=== PATIENT | female | born 1960 | race Caucasian/White ===

== ENCOUNTER 2016-09-19 17:49 | Emergency (ER) | payer OTHER ==
[~2016-09-19] VITALS: Ht 162.6 cm; Wt 90.1 kg
[~2016-09-19 17:49] MED LIST: ADULT LOW DOSE81 M1 PO; ADVAIR HFA 230-28 GM IH; ALPRAZOLAM0.25 MG PO; AMARYL2 MG PO; ANTIVERT12.5 MG PO; ASPIR 8181 M1 PO; ASPIRIN E.C.81 M1 PO; ASPIRIN81 M1 PO; ASPIRIN81 M2 PO; AUGMENTIN875 MG PO; AURALGAN14.8 ML RIGHT EAR; Advair HFA 230/21 IH; Antivert PO; B COMPLEX VIT PO; B-12 DOTS500 MCG PO; B-12250 MCG PO; BACLOFEN10 MG PO; BENTYL20 MG PO; CELEBREX200 MG PO; CELEXA20 MG PO; CIPRO500 MG PO; CITALOPRAM HBR20 M1 PO; CITALOPRAM HBR20 MG PO; COZAAR50 MG; COZAAR50 MG PO; Celexa PO; DELTASONE2.5 MG PO; DIOVAN40 MG PO; DIOVAN80 MG PO; FLAGYL500 MG PO; FLEXERIL10 MG PO; FOLIC ACID0.4 MG PO; FOLIC ACID20 MG PO; FUROSEMIDE40 MG PO; GABAPENTIN300 MG PO; GABAPENTIN600 MG PO; IRON18 MG PO; ISOSORBIDE DINI30 MG PO; KADIAN PO; KEFLEX500 MG PO; LASIX20 MG PO; LEVOTHROID,S0.025 MG PO; LEVOTHROID25 MCG PO; LEVOTHYROXINE25 MCG PO; LIPITOR80 MG PO; LISINOPRIL20 MG PO; Levaquin PO; Levothroid,Synthroid PO; MECLIZINE HCL12.5 M1 PO; MECLIZINE HCL12.5 MG PO; METHOTREXATE2.5 MG PO; METOPROLOL SUCC50 MG PO; MILLIPRED5 MG PO; MORPHINE SULFA100 M2 PO; MORPHINE SULFAT15 M1 PO; MS CONTIN,ORAMO15 M1 PO; NEURONTIN600 MG PO; Neurontin PO; OMEPRAZOLE20 MG PO; OSTERA TABLET1 EACH PO; PANTOPRAZOLE SO40 MG PO; PERCOCET 10-321 EACH PO; PERCOCET 10/1 TABLET PO; PERCOCET 5/31 TABLET PO; PLAVIX75 MG PO; PREDNISONE2.5 M1 PO; PRILOSEC20 MG; PROAIR HFA8.5 GM IH; PROAIR RESPICL90 MCG IH; PROMETHAZINE HC25 M1 PO; PROTONIX40 MG PO; PROVENTIL,2.5 MG/0.5 IH; Proair HFA IH; RANITIDINE HCL150 M1 PO; RANITIDINE HCL150 MG PO; SINGULAIR10 MG PO; SYMBICORT60 INHALA1 IH; SYNTHROID25 MCG PO; Singulair PO; TOPROL XL200 MG PO; TOPROL XL50 MG PO; TRAZODONE HCL50 MG PO; VITAMIN D1000 INTUN PO; VITAMIN D1000 UNIT PO; Vitamin B-12 PO; XANAX0.5 MG PO; XANAX2 MG PO; Xanax PO; ZOFRAN4 MG PO
[2016-09-19 21:04] LABS: ADD MIUA? YES; BILIRUBIN SMALL; BLOOD NEGATIVE; COLOR YELLOW ((YELLOW)); GLUCOSE (STRIP) NEGATIVE; KETONES NEGATIVE; LEUKOCYTES SMALL; NITRITE NEGATIVE; PH, URINE 5.5 (5-8); PROTEIN (STRIP) TRACE; SPECIFIC GRAVITY 1.025 (1.000-1.030)
[2016-09-19 21:22] LABS: HEMATOCRIT 39.6 % (36.0-46.0); MCH 31.6 PG (29.0-34.0); MCHC 33.1 G/DL (30.0-36.0); MCV 95.4 FL (83-99); MEAN PLAT.VOLUME 9.7 uM^3 (9.5-12.4); PLATELET COUNT 353 K/uL (156-360); RBC DIS.WIDTH-CV 13.2 % (11.8-14.6); RBC DIS.WIDTH-SD 44.2 % (39-53); RED BLOOD COUNT 4.15 M/uL (3.80-5.20)
[2016-09-19 21:39] LABS: CHLORIDE 104 mEq/L (99-109); POTASSIUM 4.5 mEq/L (3.7-5.4); SODIUM 138 mEq/L (136-147)
[2016-09-19 21:41] LABS: BACTERIA 2+; CASTS NONE SEEN /LPF; CRYSTALS NONE SEEN; EPITHELIAL CELLS 1+; MUCUS 1+; RED BLOOD CELLS 0-5 /HPF (0-5); WHITE BLOOD CELLS 0-5 /HPF (0-5)
[2016-09-19 21:41] LABS: GLUCOSE 88 mg/dL (70-99)
[2016-09-19 21:42] LABS: ANION GAP 10 MEQ/L (2-14)
[2016-09-19 21:45] LABS: GFR ESTIMATE (CALCULATED) 54 mL/min/
[2016-09-19 21:46] LABS: UREA NITROGEN (BUN) 22 mg/dL (9-23)
[2016-09-19] MEDS ORDERED: FLONASE16 G1 BOTH NARES (22:34)
[2016-09-19] MEDS ORDERED: KEFLEX500 MG PO (22:34)
[2016-09-19] MEDS ORDERED: MUCINEX D ER T1 EACH PO (22:34)
[2016-09-19] MEDS ORDERED: ANTIVERT25 MG PO (22:35)
[2016-09-19 22:53] VITALS: BP 123/63
== END 2016-09-19 22:53 | disposition home or self-care (01) ==
LOC: EME 17:49
PROVIDERS: Physician Assistant
PROC: 3E0234Z Introduction of Serum, Toxoid and Vaccine into Muscle, Percutaneous Approach (ICD-10-PCS; principal; 2016-09-19)
DX: H65.03 Acute serous otitis media, bilateral (principal); N39.0 Urinary tract infection, site not specified; J06.9 Acute upper respiratory infection, unspecified; S80.01XA Contusion of right knee, initial encounter; S80.211A Abrasion, right knee, initial encounter; W18.39XA Other fall on same level, initial encounter; Y93.89 Activity, other specified; Z23 Encounter for immunization; J45.909 Unspecified asthma, uncomplicated; G89.29 Other chronic pain; E11.9 Type 2 diabetes mellitus without complications; E78.5 Hyperlipidemia, unspecified; I10 Essential (primary) hypertension; Z86.73 Personal history of transient ischemic attack (TIA), and cerebral infarction without residual deficits; I25.2 Old myocardial infarction; Z95.1 Presence of aortocoronary bypass graft; Z79.82 Long term (current) use of aspirin; F17.200 Nicotine dependence, unspecified, uncomplicated
CPT/HCPCS: 73564; 80048; 81003; 85027; 93005; 99281; 99283; J7512

== ENCOUNTER 2017-05-27 20:56 | Observation (INO) | payer OTHER ==
[~2017-05-27] VITALS: Ht 162.6 cm; Wt 93.7 kg
[~2017-05-27 20:56] MED LIST changes: +ANTIVERT25 MG PO; +FLONASE16 G1 BOTH NARES; +MUCINEX D ER T1 EACH PO
[2017-05-27 21:41] LABS: HEMATOCRIT 34.8 % (36.0-46.0); MCH 32.4 PG (29.0-34.0); MCHC 34.8 G/DL (30.0-36.0); MEAN PLAT.VOLUME 9.7 uM^3 (9.5-12.4); PLATELET COUNT 323 K/uL (156-360); RBC DIS.WIDTH-CV 13.4 % (11.8-14.6); RBC DIS.WIDTH-SD 45.6 % (39-53); RED BLOOD COUNT 3.74 M/uL (3.80-5.20); WHITE BLOOD COUNT 7.8 K/uL (4.1-10.2)
[2017-05-27 22:04] LABS: CHLORIDE 109 mEq/L (99-109); POTASSIUM 3.3 mEq/L (3.7-5.4); SODIUM 143 mEq/L (136-147)
[2017-05-27 22:05] LABS: GLUCOSE 100 mg/dL (70-99)
[2017-05-27 22:07] LABS: ANION GAP 10 MEQ/L (2-14)
[2017-05-27 22:09] LABS: GFR ESTIMATE (CALCULATED) > 59 mL/min/
[2017-05-27 22:10] LABS: UREA NITROGEN (BUN) 14 mg/dL (9-23)
[2017-05-27 22:14] LABS: TROP-I INTERPRETATION NEGATIVE; TROPONIN-I 0.04 ng/mL (0.0-0.30)
[2017-05-27] MEDS ORDERED: OXYCODONE-APAP1 EACH PO (23:25)
[2017-05-27] MEDS ORDERED: GABAPENTIN600 MG PO (23:26)
[2017-05-27] MEDS ORDERED: ANTIVERT12.5 MG PO (23:29)
[2017-05-27] MEDS ORDERED: LEVOTHYROXINE88 MCG PO (23:32)
[2017-05-27] MEDS ORDERED: NITROGLYCERIN0.4 MG SL (23:33)
[2017-05-27] MEDS ORDERED: ALPRAZOLAM0.25 M2 PO (23:34)
[2017-05-27] MEDS ORDERED: SPIRIVA RESPIMAT4 G1 IH (23:38)
[2017-05-28 01:22] VITALS: BP 136/64
[2017-05-28 04:38] LABS: TROP-I INTERPRETATION NEGATIVE; TROPONIN-I 0.04 ng/mL (0.0-0.30)
[2017-05-28 05:17] LABS: HDL CHOLESTEROL 30 MG/DL (Desirable>=50); LDL CHOLESTEROL 43 mg/dL (Desirable<100); NON-HDL CHOLESTEROL 71 mg/dL (Desirable<160); TOTAL CHOLESTEROL 101 mg/dL (Desirable<200); TRIGLYCERIDES 138 MG/DL (Normal: <150)
[2017-05-28 07:40] VITALS: BP 129/80
[2017-05-28 10:03] LABS: PROTHROMBIN TIME 10.7 SEC (10.2-12.9)
[2017-05-28 10:04] LABS: ANION GAP 9 MEQ/L (2-14); CHLORIDE 110 MEQ/L (99-109); MAGNESIUM 1.9 mg/dl (1.3-2.7); POTASSIUM 3.9 MEQ/L (3.7-5.4); SAMPLE HEMOLYSIS CHECK 0; SAMPLE ICTERIC CHECK 0; SAMPLE LIPEMIA CHECK 0; SODIUM 142 MEQ/L (136-147)
[2017-05-28 10:05] LABS: PTT 26.1 SEC (25-37)
[2017-05-28 10:10] LABS: GFR ESTIMATE (CALCULATED) > 59 mL/min/; GLUCOSE 147 mg/dL (70-99); UREA NITROGEN (BUN) 12 mg/dL (9-23)
[2017-05-28 10:14] LABS: TROP-I INTERPRETATION NEGATIVE; TROPONIN-I 0.05 ng/mL (0.0-0.30)
[2017-05-28 12:21] VITALS: BP 130/73
[2017-05-28] MEDS ORDERED: IMDUR30 MG PO (13:31)
== END 2017-05-28 14:40 | disposition home or self-care (01) ==
LOC: EME → EDBD 20:56 → EME 20:56 → 5WEST 23:53 → EDOF 23:53 → ENRESERV 23:57 → 5WEST 05-28 01:00
PROVIDERS: Emergency Medicine; Internal Medicine; Physician Assistant Medical
DX: R07.9 Chest pain, unspecified (principal); E87.6 Hypokalemia; I25.10 Atherosclerotic heart disease of native coronary artery without angina pectoris; I25.82 Chronic total occlusion of coronary artery; Z95.1 Presence of aortocoronary bypass graft; Z95.5 Presence of coronary angioplasty implant and graft; I42.0 Dilated cardiomyopathy; I25.5 Ischemic cardiomyopathy; Z95.810 Presence of automatic (implantable) cardiac defibrillator; I11.0 Hypertensive heart disease with heart failure; I50.22 Chronic systolic (congestive) heart failure; I69.398 Other sequelae of cerebral infarction; R53.1 Weakness; E11.9 Type 2 diabetes mellitus without complications; I49.5 Sick sinus syndrome; E78.5 Hyperlipidemia, unspecified; E03.9 Hypothyroidism, unspecified; G89.29 Other chronic pain; J45.909 Unspecified asthma, uncomplicated; M06.9 Rheumatoid arthritis, unspecified; Z85.038 Personal history of other malignant neoplasm of large intestine; I25.2 Old myocardial infarction; F17.200 Nicotine dependence, unspecified, uncomplicated; F32.9 Major depressive disorder, single episode, unspecified; F41.9 Anxiety disorder, unspecified; Z79.82 Long term (current) use of aspirin; Z79.891 Long term (current) use of opiate analgesic; Z79.02 Long term (current) use of antithrombotics/antiplatelets; Z82.49 Family history of ischemic heart disease and other diseases of the circulatory system; Z88.1 Allergy status to other antibiotic agents; Z88.2 Allergy status to sulfonamides
CPT/HCPCS: 71020; 80048; 80061; 83735; 84484; 85027; 85610; 85730; 93005; 94640; 99202; 99281; 99285; G0378; J1650; J2270

== ENCOUNTER 2017-06-23 14:09 | Emergency (ER) | payer OTHER ==
[~2017-06-23] VITALS: Ht 162.6 cm; Wt 92.7 kg
[~2017-06-23 14:09] MED LIST changes: +ALPRAZOLAM0.25 M2 PO; +IMDUR30 MG PO; +LEVOTHYROXINE88 MCG PO; +NITROGLYCERIN0.4 MG SL; +OXYCODONE-APAP1 EACH PO; +SPIRIVA RESPIMAT4 G1 IH
[2017-06-23 14:50] LABS: HEMATOCRIT 35.1 % (36.0-46.0); MCH 31.7 PG (29.0-34.0); MCHC 33.9 G/DL (30.0-36.0); MCV 93.6 FL (83-99); MEAN PLAT.VOLUME 10.1 uM^3 (9.5-12.4); PLATELET COUNT 314 K/uL (156-360); RBC DIS.WIDTH-CV 13.4 % (11.8-14.6); RBC DIS.WIDTH-SD 45.8 % (39-53); RED BLOOD COUNT 3.75 M/uL (3.80-5.20); WHITE BLOOD COUNT 7.9 K/uL (4.1-10.2)
[2017-06-23 15:00] LABS: CHLORIDE 110 mEq/L (99-109); POTASSIUM 3.2 mEq/L (3.7-5.4); SODIUM 146 mEq/L (136-147)
[2017-06-23 15:02] LABS: GLUCOSE 105 mg/dL (70-99)
[2017-06-23 15:03] LABS: ANION GAP 12 MEQ/L (2-14)
[2017-06-23 15:06] LABS: GFR ESTIMATE (CALCULATED) > 59 mL/min/; UREA NITROGEN (BUN) 11 mg/dL (9-23)
[2017-06-23 16:47] LABS: TROP-I INTERPRETATION NEGATIVE; TROPONIN-I 0.04 ng/mL (0.0-0.30)
[2017-06-23] MEDS ORDERED: PROVENTIL,2.5 MG/3 M IH (19:18)
[2017-06-23 19:30] VITALS: BP 167/101
== END 2017-06-23 19:35 | disposition home or self-care (01) ==
LOC: EME 14:09
DX: J44.1 Chronic obstructive pulmonary disease with (acute) exacerbation (principal); Z87.01 Personal history of pneumonia (recurrent); I10 Essential (primary) hypertension; E78.5 Hyperlipidemia, unspecified; Z95.1 Presence of aortocoronary bypass graft; Z95.5 Presence of coronary angioplasty implant and graft; Z86.718 Personal history of other venous thrombosis and embolism; Z79.02 Long term (current) use of antithrombotics/antiplatelets; Z79.82 Long term (current) use of aspirin; F17.200 Nicotine dependence, unspecified, uncomplicated
CPT/HCPCS: 71020; 71275; 80048; 83880; 84484; 85027; 85379; 93005; 94640; 99281; 99285; J3010; J7030

== ENCOUNTER 2017-08-04 01:58 | Inpatient (IN) | payer OTHER ==
[~2017-08-04] VITALS: Ht 162.6 cm; Wt 91.5 kg
[~2017-08-04 01:58] MED LIST changes: +LASIX40 MG PO; +PROVENTIL,2.5 MG/3 M IH
[2017-08-04 02:30] LABS: HEMATOCRIT 40.9 % (36.0-46.0); MCH 31.8 PG (29.0-34.0); MCHC 31.1 G/DL (30.0-36.0); MCV 102.3 FL (83-99); MEAN PLAT.VOLUME 10.6 uM^3 (9.5-12.4); PLATELET COUNT 244 K/uL (156-360); RBC DIS.WIDTH-CV 12.6 % (11.8-14.6); RBC DIS.WIDTH-SD 47.8 % (39-53); WHITE BLOOD COUNT 10.5 K/uL (4.1-10.2)
[2017-08-04 02:41] LABS: CHLORIDE 108 mEq/L (99-109); POTASSIUM 4.4 mEq/L (3.7-5.4); SODIUM 140 mEq/L (136-147)
[2017-08-04 02:43] LABS: GLUCOSE 132 mg/dL (70-99)
[2017-08-04 02:45] LABS: ANION GAP 8 MEQ/L (2-14)
[2017-08-04 02:47] LABS: GFR ESTIMATE (CALCULATED) 49 mL/min/
[2017-08-04 02:48] LABS: UREA NITROGEN (BUN) 18 mg/dL (9-23)
[2017-08-04 02:52] LABS: TROP-I INTERPRETATION NEGATIVE; TROPONIN-I 0.02 ng/mL (0.0-0.30)
[2017-08-04] MEDS ORDERED: LEVAQUIN500 MG PO (03:10)
[2017-08-04 05:10] VITALS: BP 179/73
[2017-08-04 07:50] VITALS: BP 139/75
[2017-08-04 09:18] LABS: TROP-I INTERPRETATION NEGATIVE; TROPONIN-I 0.17 ng/mL (0.0-0.30)
[2017-08-04] MEDS ORDERED: LIPITOR80 MG PO (09:43)
[2017-08-04 12:28] VITALS: BP 151/83
[2017-08-04 15:17] LABS: TROP-I INTERPRETATION POSITIVE; TROPONIN-I 1.29 ng/mL (0.0-0.30)
[2017-08-04 16:51] VITALS: BP 129/60
[2017-08-04 20:29] VITALS: BP 139/67
[2017-08-04 21:25] LABS: TROP-I INTERPRETATION POSITIVE; TROPONIN-I 2.29 ng/mL (0.0-0.30)
[2017-08-04 23:16] LABS: PROTHROMBIN TIME 10.9 SEC (10.2-12.9)
[2017-08-04 23:19] LABS: PTT 25.2 SEC (25-37)
[2017-08-04 23:25] VITALS: BP 117/65
[2017-08-05 02:25] LABS: TROP-I INTERPRETATION POSITIVE
[2017-08-05 02:27] LABS: TROPONIN-I 1.75 ng/mL (0.0-0.30)
[2017-08-05 03:12] VITALS: BP 94/51
[2017-08-05 07:53] LABS: HEMATOCRIT 40.3 % (36.0-46.0); MCH 31.1 PG (29.0-34.0); MCHC 32.5 G/DL (30.0-36.0); MCV 95.7 FL (83-99); PLATELET COUNT 289 K/uL (156-360); RBC DIS.WIDTH-CV 12.8 % (11.8-14.6); RBC DIS.WIDTH-SD 45.4 % (39-53); RED BLOOD COUNT 4.21 M/uL (3.80-5.20); WHITE BLOOD COUNT 9.7 K/uL (4.1-10.2)
[2017-08-05 08:15] LABS: ANION GAP 8 MEQ/L (2-14); CHLORIDE 103 MEQ/L (99-109); GFR ESTIMATE (CALCULATED) 49 mL/min/; POTASSIUM 4.3 MEQ/L (3.7-5.4); SAMPLE HEMOLYSIS CHECK 0; SAMPLE ICTERIC CHECK 0; SAMPLE LIPEMIA CHECK 0; SODIUM 139 MEQ/L (136-147); UREA NITROGEN (BUN) 14 mg/dL (9-23)
[2017-08-05 08:19] LABS: GLUCOSE 97 mg/dL (70-99)
[2017-08-05 08:40] VITALS: BP 81/50
[2017-08-05 08:42] LABS: TROP-I INTERPRETATION POSITIVE; TROPONIN-I 1.47 ng/mL (0.0-0.30)
[2017-08-05 10:08] VITALS: BP 101/51
[2017-08-05 12:15] VITALS: BP 105/64
[2017-08-05 13:22] LABS: POINT-OF-CARE METER ID UU13113700
[2017-08-05 16:12] LABS: PTT 151.4 SEC (25-37)
[2017-08-05 22:00] VITALS: BP 109/57
[2017-08-06 00:10] VITALS: BP 110/62
[2017-08-06 03:57] VITALS: BP 130/60
[2017-08-06 05:30] LABS: BASOPHIL COUNT 0.1 K/uL (0-0.1); EOSINOPHIL (%) 6.1 % (0-5); EOSINOPHIL COUNT 0.5 K/uL (0-0.3); HEMATOCRIT 33.2 % (36.0-46.0); IMMATURE GRANULOCYTE (%) 0.2 % (0.0-0.7); INSTRUMENT ABS NEUTROPHIL CT 4.6 K/uL; LYMPHOCYTE COUNT 2.4 K/uL (1.0-2.8); MCH 31.7 PG (29.0-34.0); MCHC 33.1 G/DL (30.0-36.0); MCV 95.7 FL (83-99); MEAN PLAT.VOLUME 10.1 uM^3 (9.5-12.4); MONOCYTE (%) 9.8 % (3-12); MONOCYTE COUNT 0.8 K/uL (0-0.8); NEUTROPHIL (%) 54.6 % (45-76); NEUTROPHIL COUNT 4.6 K/uL (1.8-6.4); PLATELET COUNT 206 K/uL (156-360); RBC DIS.WIDTH-CV 12.9 % (11.8-14.6); RBC DIS.WIDTH-SD 45.1 % (39-53); RED BLOOD COUNT 3.47 M/uL (3.80-5.20); WHITE BLOOD COUNT 8.5 K/uL (4.1-10.2)
[2017-08-06 05:49] LABS: ANION GAP 5 MEQ/L (2-14); CHLORIDE 108 MEQ/L (99-109); GFR ESTIMATE (CALCULATED) > 59 mL/min/; GLUCOSE 92 mg/dL (70-99); POTASSIUM 4.2 MEQ/L (3.7-5.4); SAMPLE HEMOLYSIS CHECK 0; SAMPLE ICTERIC CHECK 0; SAMPLE LIPEMIA CHECK 0; SODIUM 140 MEQ/L (136-147); UREA NITROGEN (BUN) 13 mg/dL (9-23)
[2017-08-06 07:31] VITALS: BP 98/66
[2017-08-06] MEDS ORDERED: BRILINTA90 MG PO (10:50)
[2017-08-06 11:37] VITALS: BP 98/56
== END 2017-08-06 14:11 | disposition home or self-care (01) | DRG 247 ==
LOC: EME 01:58 → EDOF 04:01 → ENRESERV 04:08 → 5WEST 04:59 → CANRESERV 22:53 → ENRESERV 22:53 → 4EAST 08-05 21:45
PROVIDERS: Hospitalist; Internal Medicine; Internal Medicine Cardiovascular Disease; Nurse Practitioner Family; Physician Assistant
DX: I21.4 Non-ST elevation (NSTEMI) myocardial infarction (principal); I25.5 Ischemic cardiomyopathy; K31.84 Gastroparesis; I11.0 Hypertensive heart disease with heart failure; I25.118 Atherosclerotic heart disease of native coronary artery with other forms of angina pectoris; E11.43 Type 2 diabetes mellitus with diabetic autonomic (poly)neuropathy; I50.9 Heart failure, unspecified; Z68.35 Body mass index [BMI] 35.0-35.9, adult; E66.01 Morbid (severe) obesity due to excess calories; D64.9 Anemia, unspecified; E78.5 Hyperlipidemia, unspecified; F41.9 Anxiety disorder, unspecified; G62.9 Polyneuropathy, unspecified; G89.4 Chronic pain syndrome; F11.20 Opioid dependence, uncomplicated; F17.210 Nicotine dependence, cigarettes, uncomplicated; J44.9 Chronic obstructive pulmonary disease, unspecified; Z86.73 Personal history of transient ischemic attack (TIA), and cerebral infarction without residual deficits; Z95.1 Presence of aortocoronary bypass graft; Z95.810 Presence of automatic (implantable) cardiac defibrillator; Z88.2 Allergy status to sulfonamides; Z95.5 Presence of coronary angioplasty implant and graft; I25.2 Old myocardial infarction; Z79.82 Long term (current) use of aspirin; Z79.899 Other long term (current) drug therapy; Z80.0 Family history of malignant neoplasm of digestive organs; Z82.49 Family history of ischemic heart disease and other diseases of the circulatory system
CPT/HCPCS: 71020; 80048; 82948; 84484; 85025; 85027; 85347; 85610; 85730; 93005; 99281; 99285; C1725; C1769; C1874; C1887; C1894; J0583; J1644; J1650; J2250; J2270; J2405; J3010

== ENCOUNTER 2017-11-01 03:49 | Inpatient (IN) | payer OTHER ==
[~2017-11-01] VITALS: Ht 162.6 cm; Wt 94.4 kg
[2017-11-01] VITALS (19 sets, daily range): BP systolic 73–106; BP diastolic 40–69
[~2017-11-01 03:49] MED LIST changes: +BRILINTA90 MG PO; +LEVAQUIN500 MG PO
[2017-11-01 05:01] LABS: APPEARANCE SL.HAZY ((CLEAR)); BILIRUBIN NEGATIVE; BLOOD NEGATIVE; COLOR YELLOW ((YELLOW)); GLUCOSE (STRIP) NEGATIVE; KETONES NEGATIVE; LEUKOCYTES NEGATIVE; NITRITE NEGATIVE; PROTEIN (STRIP) NEGATIVE; SPECIFIC GRAVITY 1.017 (1.000-1.030); UROBILINOGEN 0.2 MG/DL (0.2-1.0)
[2017-11-01 05:04] LABS: ALBUMIN 3.5 g/dL (3.2-4.8); CHLORIDE 103 mEq/L (99-109); POTASSIUM 3.8 mEq/L (3.7-5.4); SODIUM 141 mEq/L (136-147)
[2017-11-01 05:05] LABS: MAGNESIUM 1.6 mg/dL (1.3-2.7)
[2017-11-01 05:06] LABS: GLUCOSE 113 mg/dL (70-99)
[2017-11-01 05:07] LABS: TOTAL PROTEIN 6.8 g/dL (6.4-8.3)
[2017-11-01 05:08] LABS: HEMATOCRIT 38.6 % (36.0-46.0); HEMOGLOBIN 12.7 G/DL (11.9-15.5); MCH 32.6 PG (29.0-34.0); MCHC 32.9 G/DL (30.0-36.0); MCV 99.2 FL (83-99); PLATELET COUNT 422 K/uL (156-360); RBC DIS.WIDTH-CV 14.9 % (11.8-14.6); RBC DIS.WIDTH-SD 54.3 % (39-53); RED BLOOD COUNT 3.89 M/uL (3.80-5.20); TOTAL BILIRUBIN 0.6 mg/dL (0.0-1.0)
[2017-11-01 05:08] LABS: BACTERIA NONE SEEN /HPF; EPITHELIAL CELLS 1+ /HPF; HYALINE CASTS TNTC /LPF; MUCUS TRACE /LPF; RED BLOOD CELLS 0-5 /HPF (0-5); UCUL ADDED? NO; WHITE BLOOD CELLS 0-5 /HPF (0-5)
[2017-11-01 05:10] LABS: ALKALINE PHOSPHATASE 76 IU/L (3-129); CREATININE 4.7 mg/dL (0.6-1.3); GFR ESTIMATE (CALCULATED) 10 mL/min/
[2017-11-01 05:11] LABS: UREA NITROGEN (BUN) 42 mg/dL (9-23)
[2017-11-01 05:12] LABS: AST (GOT) 16 IU/L (2-34)
[2017-11-01 05:13] LABS: ALT (GPT) 8 IU/L (3-49)
[2017-11-01 05:19] LABS: TROP-I INTERPRETATION NEGATIVE; TROPONIN-I 0.07 ng/mL (0.0-0.30)
[2017-11-01 05:29] LABS: INTER. NORMALIZED RATIO 1.2
[2017-11-01 05:31] LABS: ABS NEUTROPHIL COUNT 3.9; ATYPICAL LYMPHOCYTE 0.9 %; BAND NEUTROPHILS 17.4 % (0-8.0); BURR CELLS 2+; EOSINOPHIL ABS CT 0; METAMYELOCYTES 1.7 %; MONOCYTES 26.1 % (0-9.0); MYELOCYTES 2.6 %; OVALOCYTES 1+; PLAT.SUFFICIENCY ADEQUATE; POIKILOCYTOSIS 2+; POLYCHROMASIA 1+; SEG.NEUTROPHILS 31.3 % (46.0-76.0)
[2017-11-01 05:32] LABS: PTT 26.2 SEC (25-37)
[2017-11-01 08:06] LABS: THYROTROPIN (TSH) 3.3 MIU/L (0.4-5.5)
[2017-11-01] MEDS ORDERED: FLONASE16 G1 BOTH NARES (12:42)
[2017-11-01] MEDS ORDERED: LOSARTAN POTASS50 MG PO (12:43)
[2017-11-01] MEDS ORDERED: SPIRONOLACTONE25 MG PO (12:43)
[2017-11-01 15:55] LABS: CHLORIDE 108 MEQ/L (99-109); POTASSIUM 4.3 MEQ/L (3.7-5.4); SODIUM 140 MEQ/L (136-147); UREA NITROGEN (BUN) 43 mg/dL (9-23)
[2017-11-01 15:59] LABS: CREATININE 3.1 MG/DL (0.6-1.3); GFR ESTIMATE (CALCULATED) 16 mL/min/; GLUCOSE 80 mg/dL (70-99)
[2017-11-02] VITALS (24 sets, daily range): BP systolic 79–146; BP diastolic 49–90
[2017-11-02 04:41] LABS: HEMATOCRIT 33.4 % (36.0-46.0); MCH 32.4 PG (29.0-34.0); MCHC 32.9 G/DL (30.0-36.0); MCV 98.5 FL (83-99); NRBC (%) 0.4 /100 WBC (0-0); PLATELET COUNT 341 K/uL (156-360); RBC DIS.WIDTH-SD 54.2 % (39-53); RED BLOOD COUNT 3.39 M/uL (3.80-5.20); WHITE BLOOD COUNT 5.2 K/uL (4.1-10.2)
[2017-11-02 04:45] LABS: INTER. NORMALIZED RATIO 1.2
[2017-11-02 04:47] LABS: PTT 21.9 SEC (25-37)
[2017-11-02 04:48] LABS: SODIUM 142 mEq/L (136-147)
[2017-11-02 04:50] LABS: GLUCOSE 87 mg/dL (70-99)
[2017-11-02 04:53] LABS: CHLORIDE 115 mEq/L (99-109)
[2017-11-02 04:54] LABS: CREATININE 2.7 mg/dL (0.6-1.3); GFR ESTIMATE (CALCULATED) 19 mL/min/
[2017-11-02 04:55] LABS: UREA NITROGEN (BUN) 50 mg/dL (9-23)
[2017-11-02 20:53] LABS: C DIFF TOXIN NEGATIVE (NEGATIVE)
[2017-11-03] VITALS (25 sets, daily range): BP systolic 101–178; BP diastolic 49–113
[2017-11-03 06:27] LABS: GLUCOSE 72 mg/dL (70-99); POTASSIUM 3.7 MEQ/L (3.7-5.4); SODIUM 149 MEQ/L (136-147); UREA NITROGEN (BUN) 29 mg/dL (9-23)
[2017-11-03 06:28] LABS: CHLORIDE 123 MEQ/L (99-109); CREATININE 1.2 MG/DL (0.6-1.3); GFR ESTIMATE (CALCULATED) 49 mL/min/
[2017-11-04] VITALS (22 sets, daily range): BP systolic 149–184; BP diastolic 60–130
[2017-11-04 05:40] LABS: HEMOGLOBIN 9.8 G/DL (11.9-15.5); MCHC 32.7 G/DL (30.0-36.0); PLATELET COUNT 243 K/uL (156-360); RBC DIS.WIDTH-CV 15.4 % (11.8-14.6); RED BLOOD COUNT 3.06 M/uL (3.80-5.20); WHITE BLOOD COUNT 11.8 K/uL (4.1-10.2)
[2017-11-04 06:07] LABS: CHLORIDE 122 MEQ/L (99-109); CREATININE 0.9 MG/DL (0.6-1.3); GFR ESTIMATE (CALCULATED) > 59 mL/min/; GLUCOSE 80 mg/dL (70-99); POTASSIUM 3.6 MEQ/L (3.7-5.4); SODIUM 153 MEQ/L (136-147); UREA NITROGEN (BUN) 19 mg/dL (9-23)
[2017-11-05 02:37] VITALS: BP 154/76
[2017-11-05 08:30] VITALS: BP 178/97
[2017-11-05 09:39] LABS: HEMATOCRIT 29.9 % (36.0-46.0); HEMOGLOBIN 9.7 G/DL (11.9-15.5); MCH 31.1 PG (29.0-34.0); MCHC 32.4 G/DL (30.0-36.0); MCV 95.8 FL (83-99); NRBC (%) 0.2 /100 WBC (0-0); PLATELET COUNT 230 K/uL (156-360); RBC DIS.WIDTH-CV 15.3 % (11.8-14.6); RBC DIS.WIDTH-SD 54.1 % (39-53); RED BLOOD COUNT 3.12 M/uL (3.80-5.20); WHITE BLOOD COUNT 11.1 K/uL (4.1-10.2)
[2017-11-05 10:02] LABS: CHLORIDE 119 MEQ/L (99-109); CREATININE 0.8 MG/DL (0.6-1.3); GFR ESTIMATE (CALCULATED) > 59 mL/min/; MAGNESIUM 1.8 mg/dl (1.3-2.7); PHOSPHORUS 1.1 mg/dL (2.5-4.9); POTASSIUM 3.3 MEQ/L (3.7-5.4); SODIUM 152 MEQ/L (136-147); UREA NITROGEN (BUN) 12 mg/dL (9-23)
[2017-11-05 10:03] LABS: GLUCOSE 107 mg/dL (70-99)
[2017-11-05 11:47] VITALS: BP 174/95
[2017-11-05 17:00] VITALS: BP 134/85
[2017-11-05 18:56] LABS: CHLORIDE 118 MEQ/L (99-109); CREATININE 0.7 MG/DL (0.6-1.3); GFR ESTIMATE (CALCULATED) > 59 mL/min/; GLUCOSE 101 mg/dL (70-99); POTASSIUM 3.3 MEQ/L (3.7-5.4); SODIUM 148 MEQ/L (136-147); UREA NITROGEN (BUN) 10 mg/dL (9-23)
[2017-11-05 19:57] VITALS: BP 140/82
[2017-11-06] VITALS (7 sets, daily range): BP systolic 130–146; BP diastolic 66–86
[2017-11-06 05:25] LABS: BASOPHIL (%) 0.7 % (0-1); BASOPHIL COUNT 0.1 K/uL (0-0.1); EOSINOPHIL (%) 4.8 % (0-5); EOSINOPHIL COUNT 0.5 K/uL (0-0.3); HEMATOCRIT 28.3 % (36.0-46.0); HEMOGLOBIN 9.4 G/DL (11.9-15.5); IMMATURE GRANULOCYTE (%) 3.8 % (0.0-0.7); LYMPHOCYTE (%) 29.2 % (15-42); LYMPHOCYTE COUNT 2.9 K/uL (1.0-2.8); MCH 32.3 PG (29.0-34.0); MCHC 33.2 G/DL (30.0-36.0); MCV 97.3 FL (83-99); MONOCYTE COUNT 1.3 K/uL (0-0.8); NEUTROPHIL (%) 48.5 % (45-76); NEUTROPHIL COUNT 4.8 K/uL (1.8-6.4); NRBC (%) 0.2 /100 WBC (0-0); PLATELET COUNT 201 K/uL (156-360); RBC DIS.WIDTH-CV 15.2 % (11.8-14.6); RBC DIS.WIDTH-SD 54.2 % (39-53); RED BLOOD COUNT 2.91 M/uL (3.80-5.20); WHITE BLOOD COUNT 9.8 K/uL (4.1-10.2)
[2017-11-06 05:49] LABS: CHLORIDE 112 MEQ/L (99-109); CREATININE 0.7 MG/DL (0.6-1.3); GFR ESTIMATE (CALCULATED) > 59 mL/min/; GLUCOSE 104 mg/dL (70-99); MAGNESIUM 2.1 mg/dl (1.3-2.7); PHOSPHORUS 2.5 mg/dL (2.5-4.9); POTASSIUM 2.9 MEQ/L (3.7-5.4); SODIUM 143 MEQ/L (136-147); UREA NITROGEN (BUN) 11 mg/dL (9-23)
[2017-11-06 15:32] LABS: CHLORIDE 117 MEQ/L (99-109); CREATININE 0.7 MG/DL (0.6-1.3); GFR ESTIMATE (CALCULATED) > 59 mL/min/; GLUCOSE 111 mg/dL (70-99); SODIUM 146 MEQ/L (136-147); UREA NITROGEN (BUN) 11 mg/dL (9-23)
[2017-11-06 15:43] LABS: POTASSIUM 3.5 MEQ/L (3.7-5.4)
[2017-11-07 03:38] VITALS: BP 130/83
[2017-11-07 05:46] LABS: HEMATOCRIT 29.2 % (36.0-46.0); HEMOGLOBIN 9.5 G/DL (11.9-15.5); MCH 31.4 PG (29.0-34.0); MCHC 32.5 G/DL (30.0-36.0); MCV 96.4 FL (83-99); NRBC (%) 0.4 /100 WBC (0-0); PLATELET COUNT 239 K/uL (156-360); RBC DIS.WIDTH-CV 14.9 % (11.8-14.6); RBC DIS.WIDTH-SD 52.3 % (39-53); RED BLOOD COUNT 3.03 M/uL (3.80-5.20); WHITE BLOOD COUNT 10.4 K/uL (4.1-10.2)
[2017-11-07 06:09] LABS: CHLORIDE 111 MEQ/L (99-109); CREATININE 0.7 MG/DL (0.6-1.3); GFR ESTIMATE (CALCULATED) > 59 mL/min/; GLUCOSE 93 mg/dL (70-99); POTASSIUM 3.2 MEQ/L (3.7-5.4); SODIUM 144 MEQ/L (136-147); UREA NITROGEN (BUN) 10 mg/dL (9-23)
[2017-11-07 06:25] LABS: BASOPHIL (%) 0.7 % (0-1); BASOPHIL COUNT 0.1 K/uL (0-0.1); EOSINOPHIL (%) 9.4 % (0-5); IMMATURE GRANULOCYTE (%) 2.8 % (0.0-0.7); LYMPHOCYTE (%) 27.6 % (15-42); LYMPHOCYTE COUNT 2.9 K/uL (1.0-2.8); MONOCYTE COUNT 0.9 K/uL (0-0.8); NEUTROPHIL (%) 50.5 % (45-76); NEUTROPHIL COUNT 5.3 K/uL (1.8-6.4)
[2017-11-07 07:20] VITALS: BP 131/93
[2017-11-07 12:11] VITALS: BP 130/90
[2017-11-07] MEDS ORDERED: LASIX20 MG PO (13:45)
[2017-11-07] MEDS ORDERED: OXYCODONE-APAP1 EACH PO (15:35)
== END 2017-11-07 16:46 | disposition home or self-care (01) | DRG 871 ==
LOC: EME → EDBD 03:49 → EME 03:49 → 4WEST 06:22 → EDOF 06:22 → ENRESERV 06:23 → 4WEST 07:15 → ENRESERV 11-04 21:39 → 4EAST 11-04 22:32
PROVIDERS: Emergency Medicine; Internal Medicine; Internal Medicine Critical Care Medicine; Surgery
DX: A41.9 Sepsis, unspecified organism (principal); I21.4 Non-ST elevation (NSTEMI) myocardial infarction; I25.10 Atherosclerotic heart disease of native coronary artery without angina pectoris; N18.9 Chronic kidney disease, unspecified; I13.0 Hypertensive heart and chronic kidney disease with heart failure and stage 1 through stage 4 chronic kidney disease, or unspecified chronic kidney disease; R65.21 Severe sepsis with septic shock; N17.9 Acute kidney failure, unspecified; E78.5 Hyperlipidemia, unspecified; K56.609 Unspecified intestinal obstruction, unspecified as to partial versus complete obstruction; E87.2 Acidosis; E11.22 Type 2 diabetes mellitus with diabetic chronic kidney disease; E11.9 Type 2 diabetes mellitus without complications; E66.9 Obesity, unspecified; F17.210 Nicotine dependence, cigarettes, uncomplicated; Z95.5 Presence of coronary angioplasty implant and graft; Z80.0 Family history of malignant neoplasm of digestive organs; Z88.2 Allergy status to sulfonamides; Z87.01 Personal history of pneumonia (recurrent); Z95.810 Presence of automatic (implantable) cardiac defibrillator; Z95.1 Presence of aortocoronary bypass graft; I25.5 Ischemic cardiomyopathy; E86.0 Dehydration; E87.0 Hyperosmolality and hypernatremia; E87.8 Other disorders of electrolyte and fluid balance, not elsewhere classified; E87.6 Hypokalemia; K56.7 Ileus, unspecified; K21.9 Gastro-esophageal reflux disease without esophagitis; I50.9 Heart failure, unspecified
CPT/HCPCS: 70450; 71045; 71046; 71275; 74018; 74019; 74021; 74174; 80047; 80048; 80048 91; 80053; 81003; 82436; 82570; 82948; 83605; 83735; 83880; 83935; 84100; 84133; 84300; 84439; 84443; 84484; 85025; 85027; 85610; 85730; 87493; 87641; 93005; 93306; 94640; 94799; 99202; 99281; 99285; C1751; J0610; J1644; J1650; J1885; J1940; J2405; J3010; J3475; J3480; J7030; J7040; J7050; J7070; J7120; S0028

== ENCOUNTER 2017-12-26 17:34 | Inpatient (IN) | payer OTHER ==
[~2017-12-26] VITALS: Ht 162.6 cm; Wt 84.6 kg
[~2017-12-26 17:34] MED LIST changes: +LOSARTAN POTASS50 MG PO; +SPIRONOLACTONE25 MG PO
[2017-12-26 18:39] LABS: HEMATOCRIT 40.5 % (36.0-46.0); HEMOGLOBIN 13.8 G/DL (11.9-15.5); MCH 33.1 PG (29.0-34.0); MCHC 34.1 G/DL (30.0-36.0); MCV 97.1 FL (83-99); PLATELET COUNT 315 K/uL (156-360); RBC DIS.WIDTH-CV 14.1 % (11.8-14.6); RBC DIS.WIDTH-SD 50.3 % (39-53); RED BLOOD COUNT 4.17 M/uL (3.80-5.20)
[2017-12-26 19:08] LABS: CHLORIDE 112 mEq/L (99-109); POTASSIUM 4.5 mEq/L (3.7-5.4); SODIUM 144 mEq/L (136-147)
[2017-12-26 19:11] LABS: GLUCOSE 112 mg/dL (70-99); TOTAL PROTEIN 7.4 g/dL (6.4-8.3)
[2017-12-26 19:12] LABS: TOTAL BILIRUBIN 1.2 mg/dL (0.0-1.0)
[2017-12-26 19:14] LABS: ALKALINE PHOSPHATASE 72 IU/L (3-129); CREATININE 1.7 mg/dL (0.6-1.3); GFR ESTIMATE (CALCULATED) 33 mL/min/
[2017-12-26 19:15] LABS: UREA NITROGEN (BUN) 21 mg/dL (9-23)
[2017-12-26 19:16] LABS: AST (GOT) 14 IU/L (2-34); TROP-I INTERPRETATION NEGATIVE; TROPONIN-I 0.02 ng/mL (0.0-0.30)
[2017-12-26 19:17] LABS: ALT (GPT) 12 IU/L (3-49)
[2017-12-26 19:18] LABS: LIPASE 4 U/L (1.0-51.0)
[2017-12-26 19:33] LABS: PTT 19.1 SEC (25-37)
[2017-12-26] MEDS ORDERED: FUROSEMIDE20 MG PO (20:42)
[2017-12-26 23:41] VITALS: BP 136/76
[2017-12-27 02:34] LABS: APPEARANCE SL.HAZY ((CLEAR)); BILIRUBIN NEGATIVE; BLOOD SMALL; COLOR YELLOW ((YELLOW)); GLUCOSE (STRIP) NEGATIVE; KETONES 5; LEUKOCYTES NEGATIVE; NITRITE NEGATIVE; PROTEIN (STRIP) NEGATIVE; SPECIFIC GRAVITY 1.012 (1.000-1.030); UROBILINOGEN 0.2 MG/DL (0.2-1.0)
[2017-12-27 02:41] LABS: BACTERIA RARE /HPF; EPITHELIAL CELLS RARE /HPF; HYALINE CASTS 20-30 /LPF; MUCUS TRACE /LPF; RED BLOOD CELLS 0-5 /HPF (0-5); UCUL ADDED? NO; WHITE BLOOD CELLS 0-5 /HPF (0-5)
[2017-12-27 03:50] VITALS: BP 154/73
[2017-12-27 06:53] LABS: BASOPHIL (%) 0.6 % (0-1); EOSINOPHIL COUNT 0.2 K/uL (0-0.3); HEMATOCRIT 35.9 % (36.0-46.0); IMMATURE GRANULOCYTE (%) 0.2 % (0.0-0.7); LYMPHOCYTE (%) 49.2 % (15-42); LYMPHOCYTE COUNT 2.6 K/uL (1.0-2.8); MCH 32.4 PG (29.0-34.0); MCHC 32.6 G/DL (30.0-36.0); MCV 99.4 FL (83-99); MONOCYTE (%) 9.8 % (3-12); MONOCYTE COUNT 0.5 K/uL (0-0.8); NEUTROPHIL (%) 36.2 % (45-76); NEUTROPHIL COUNT 1.9 K/uL (1.8-6.4); PLATELET COUNT 269 K/uL (156-360); RBC DIS.WIDTH-CV 14.1 % (11.8-14.6); RBC DIS.WIDTH-SD 51.2 % (39-53); RED BLOOD COUNT 3.61 M/uL (3.80-5.20); WHITE BLOOD COUNT 5.3 K/uL (4.1-10.2)
[2017-12-27 06:57] LABS: HEMOGLOBIN 11.7 G/DL (11.9-15.5)
[2017-12-27 07:07] LABS: CHLORIDE 113 MEQ/L (99-109); CREATININE 1.3 MG/DL (0.6-1.3); GFR ESTIMATE (CALCULATED) 45 mL/min/; GLUCOSE 87 mg/dL (70-99); POTASSIUM 3.7 MEQ/L (3.7-5.4); SODIUM 142 MEQ/L (136-147); UREA NITROGEN (BUN) 20 mg/dL (9-23)
[2017-12-27 09:15] VITALS: BP 157/80
[2017-12-27 11:28] VITALS: BP 151/70
[2017-12-27 15:14] VITALS: BP 170/74
[2017-12-27 19:56] VITALS: BP 145/82
[2017-12-28 00:43] VITALS: BP 149/70
[2017-12-28 04:06] VITALS: BP 142/71
[2017-12-28 07:01] LABS: BASOPHIL (%) 0.5 % (0-1); EOSINOPHIL (%) 5.6 % (0-5); EOSINOPHIL COUNT 0.3 K/uL (0-0.3); HEMATOCRIT 34.2 % (36.0-46.0); HEMOGLOBIN 11.6 G/DL (11.9-15.5); IMMATURE GRANULOCYTE (%) 0.2 % (0.0-0.7); LYMPHOCYTE COUNT 2.5 K/uL (1.0-2.8); MCH 32.6 PG (29.0-34.0); MCHC 33.9 G/DL (30.0-36.0); MCV 96.1 FL (83-99); MONOCYTE (%) 8.5 % (3-12); MONOCYTE COUNT 0.5 K/uL (0-0.8); NEUTROPHIL (%) 45.2 % (45-76); NEUTROPHIL COUNT 2.8 K/uL (1.8-6.4); PLATELET COUNT 278 K/uL (156-360); RBC DIS.WIDTH-CV 13.7 % (11.8-14.6); RBC DIS.WIDTH-SD 48.3 % (39-53); RED BLOOD COUNT 3.56 M/uL (3.80-5.20); WHITE BLOOD COUNT 6.1 K/uL (4.1-10.2)
[2017-12-28 07:11] VITALS: BP 132/97
[2017-12-28 07:25] LABS: CHLORIDE 110 MEQ/L (99-109); GFR ESTIMATE (CALCULATED) > 59 mL/min/; GLUCOSE 108 mg/dL (70-99); POTASSIUM 3.7 MEQ/L (3.7-5.4); SODIUM 140 MEQ/L (136-147); UREA NITROGEN (BUN) 14 mg/dL (9-23)
[2017-12-28 11:07] VITALS: BP 159/82
[2017-12-28 15:54] VITALS: BP 157/95
[2017-12-28 22:34] VITALS: BP 143/78
[2017-12-29 06:30] LABS: BASOPHIL (%) 0.7 % (0-1); EOSINOPHIL (%) 6.6 % (0-5); EOSINOPHIL COUNT 0.4 K/uL (0-0.3); HEMATOCRIT 34.5 % (36.0-46.0); HEMOGLOBIN 11.8 G/DL (11.9-15.5); IMMATURE GRANULOCYTE (%) 0.2 % (0.0-0.7); LYMPHOCYTE (%) 37.5 % (15-42); LYMPHOCYTE COUNT 2.1 K/uL (1.0-2.8); MCH 32.2 PG (29.0-34.0); MCHC 34.2 G/DL (30.0-36.0); MONOCYTE COUNT 0.4 K/uL (0-0.8); NEUTROPHIL COUNT 2.6 K/uL (1.8-6.4); PLATELET COUNT 285 K/uL (156-360); RBC DIS.WIDTH-CV 13.6 % (11.8-14.6); RBC DIS.WIDTH-SD 46.7 % (39-53); RED BLOOD COUNT 3.67 M/uL (3.80-5.20); WHITE BLOOD COUNT 5.5 K/uL (4.1-10.2)
[2017-12-29 07:07] LABS: CHLORIDE 111 MEQ/L (99-109); CREATININE 0.9 MG/DL (0.6-1.3); GFR ESTIMATE (CALCULATED) > 59 mL/min/; GLUCOSE 94 mg/dL (70-99); POTASSIUM 3.5 MEQ/L (3.7-5.4); SODIUM 142 MEQ/L (136-147); UREA NITROGEN (BUN) 8 mg/dL (9-23)
[2017-12-29 07:23] VITALS: BP 170/109
[2017-12-29 09:16] VITALS: BP 140/83
[2017-12-29 15:09] VITALS: BP 122/78
[2017-12-29 19:10] VITALS: BP 122/81
[2017-12-30] VITALS (7 sets, daily range): BP systolic 109–172; BP diastolic 57–94
[2017-12-30 06:41] LABS: BASOPHIL (%) 0.4 % (0-1); EOSINOPHIL (%) 8.6 % (0-5); EOSINOPHIL COUNT 0.6 K/uL (0-0.3); HEMATOCRIT 34.2 % (36.0-46.0); HEMOGLOBIN 11.4 G/DL (11.9-15.5); IMMATURE GRANULOCYTE (%) 0.1 % (0.0-0.7); LYMPHOCYTE (%) 43.4 % (15-42); LYMPHOCYTE COUNT 2.9 K/uL (1.0-2.8); MCH 31.9 PG (29.0-34.0); MCHC 33.3 G/DL (30.0-36.0); MCV 95.8 FL (83-99); MONOCYTE (%) 7.2 % (3-12); MONOCYTE COUNT 0.5 K/uL (0-0.8); NEUTROPHIL (%) 40.3 % (45-76); NEUTROPHIL COUNT 2.7 K/uL (1.8-6.4); PLATELET COUNT 293 K/uL (156-360); RBC DIS.WIDTH-CV 13.7 % (11.8-14.6); RBC DIS.WIDTH-SD 48.2 % (39-53); RED BLOOD COUNT 3.57 M/uL (3.80-5.20); WHITE BLOOD COUNT 6.8 K/uL (4.1-10.2)
[2017-12-30 07:03] LABS: CHLORIDE 110 MEQ/L (99-109); GFR ESTIMATE (CALCULATED) > 59 mL/min/; GLUCOSE 84 mg/dL (70-99); SODIUM 142 MEQ/L (136-147); UREA NITROGEN (BUN) 6 mg/dL (9-23)
[2017-12-30 07:14] LABS: POTASSIUM 4.4 MEQ/L (3.7-5.4)
[2017-12-31 06:01] LABS: BASOPHIL (%) 0.9 % (0-1); BASOPHIL COUNT 0.1 K/uL (0-0.1); EOSINOPHIL (%) 9.7 % (0-5); EOSINOPHIL COUNT 0.7 K/uL (0-0.3); HEMATOCRIT 32.8 % (36.0-46.0); HEMOGLOBIN 10.9 G/DL (11.9-15.5); IMMATURE GRANULOCYTE (%) 0.3 % (0.0-0.7); LYMPHOCYTE (%) 42.6 % (15-42); MCH 32.2 PG (29.0-34.0); MCHC 33.2 G/DL (30.0-36.0); MCV 96.8 FL (83-99); MONOCYTE (%) 8.3 % (3-12); MONOCYTE COUNT 0.6 K/uL (0-0.8); NEUTROPHIL (%) 38.2 % (45-76); NEUTROPHIL COUNT 2.7 K/uL (1.8-6.4); PLATELET COUNT 286 K/uL (156-360); RBC DIS.WIDTH-SD 49.8 % (39-53); RED BLOOD COUNT 3.39 M/uL (3.80-5.20)
[2017-12-31 06:25] LABS: CHLORIDE 111 MEQ/L (99-109); GFR ESTIMATE (CALCULATED) > 59 mL/min/; GLUCOSE 95 mg/dL (70-99); POTASSIUM 3.6 MEQ/L (3.7-5.4); SODIUM 141 MEQ/L (136-147); UREA NITROGEN (BUN) 8 mg/dL (9-23)
[2017-12-31 07:25] VITALS: BP 137/68
== END 2017-12-31 11:25 | disposition home or self-care (01) | DRG 388 ==
LOC: EME 17:34 → 2EAST 21:46 → EDOF 21:46 → ENRESERV 21:49 → 2EAST 22:56
PROVIDERS: Emergency Medicine Emergency Medical Services; Hospitalist; Internal Medicine; Physician Assistant
DX: K56.600 Partial intestinal obstruction, unspecified as to cause (principal); N17.9 Acute kidney failure, unspecified; I50.21 Acute systolic (congestive) heart failure; I25.5 Ischemic cardiomyopathy; I25.810 Atherosclerosis of coronary artery bypass graft(s) without angina pectoris; I25.10 Atherosclerotic heart disease of native coronary artery without angina pectoris; I69.354 Hemiplegia and hemiparesis following cerebral infarction affecting left non-dominant side; E11.43 Type 2 diabetes mellitus with diabetic autonomic (poly)neuropathy; K31.84 Gastroparesis; E03.9 Hypothyroidism, unspecified; E78.5 Hyperlipidemia, unspecified; G89.29 Other chronic pain; M06.9 Rheumatoid arthritis, unspecified; J44.9 Chronic obstructive pulmonary disease, unspecified; I10 Essential (primary) hypertension; I25.2 Old myocardial infarction; K21.9 Gastro-esophageal reflux disease without esophagitis; D64.9 Anemia, unspecified; F32.9 Major depressive disorder, single episode, unspecified; F41.9 Anxiety disorder, unspecified; E66.9 Obesity, unspecified; Z68.29 Body mass index [BMI] 29.0-29.9, adult; F17.210 Nicotine dependence, cigarettes, uncomplicated; Z80.0 Family history of malignant neoplasm of digestive organs; Z82.49 Family history of ischemic heart disease and other diseases of the circulatory system; Z83.3 Family history of diabetes mellitus; Z95.810 Presence of automatic (implantable) cardiac defibrillator
CPT/HCPCS: 71045; 74018; 74176; 80048; 80053; 81003; 82948; 83690; 84484; 85025; 85027; 85610; 85730; 93005; 94640; 94640 76; 94760; 99202; 99281; 99285; J0360; J1644; J2270; J2405; J3010; J7040; J7070; J7120; S0028

== ENCOUNTER 2018-01-26 14:52 | Emergency (ER) | payer OTHER ==
[~2018-01-26] VITALS: Ht 162.6 cm; Wt 87.2 kg
[~2018-01-26 14:52] MED LIST changes: +FUROSEMIDE20 MG PO
[2018-01-26 15:50] LABS: HEMATOCRIT 37.8 % (36.0-46.0); MCH 33.3 PG (29.0-34.0); MCHC 35.4 G/DL (30.0-36.0); MCV 93.8 FL (83-99); PLATELET COUNT 361 K/uL (156-360); RBC DIS.WIDTH-CV 13.9 % (11.8-14.6); RBC DIS.WIDTH-SD 47.8 % (39-53); RED BLOOD COUNT 4.03 M/uL (3.80-5.20); WHITE BLOOD COUNT 9.1 K/uL (4.1-10.2)
[2018-01-26 15:51] LABS: HEMOGLOBIN 13.4 G/DL (11.9-15.5)
[2018-01-26 17:03] LABS: ALBUMIN 3.7 g/dL (3.2-4.8); CHLORIDE 109 mEq/L (99-109); POTASSIUM 4.5 mEq/L (3.7-5.4); SODIUM 140 mEq/L (136-147)
[2018-01-26 17:06] LABS: GLUCOSE 109 mg/dL (70-99); TOTAL PROTEIN 6.9 g/dL (6.4-8.3)
[2018-01-26 17:08] LABS: TOTAL BILIRUBIN 0.9 mg/dL (0.0-1.0)
[2018-01-26 17:09] LABS: ALKALINE PHOSPHATASE 75 IU/L (3-129); CREATININE 0.9 mg/dL (0.6-1.3); GFR ESTIMATE (CALCULATED) > 59 mL/min/
[2018-01-26 17:10] LABS: UREA NITROGEN (BUN) 16 mg/dL (9-23)
[2018-01-26 17:11] LABS: AST (GOT) 13 IU/L (2-34)
[2018-01-26 17:12] LABS: ALT (GPT) 9 IU/L (3-49)
[2018-01-26 17:13] LABS: LIPASE 7 U/L (1.0-51.0)
[2018-01-26] MEDS ORDERED: ZOFRAN ODT4 MG PO (19:10)
[2018-01-26 19:41] VITALS: BP 128/93
== END 2018-01-26 20:11 | disposition home or self-care (01) ==
LOC: EME 14:52
PROVIDERS: Nurse Practitioner Family
DX: R10.11 Right upper quadrant pain (principal); R11.0 Nausea; G89.29 Other chronic pain; K57.30 Diverticulosis of large intestine without perforation or abscess without bleeding; K76.0 Fatty (change of) liver, not elsewhere classified; E11.9 Type 2 diabetes mellitus without complications; E78.5 Hyperlipidemia, unspecified; I10 Essential (primary) hypertension; I25.2 Old myocardial infarction; J44.9 Chronic obstructive pulmonary disease, unspecified; K21.9 Gastro-esophageal reflux disease without esophagitis; F41.9 Anxiety disorder, unspecified; Z86.73 Personal history of transient ischemic attack (TIA), and cerebral infarction without residual deficits; F17.200 Nicotine dependence, unspecified, uncomplicated; Z95.1 Presence of aortocoronary bypass graft; Z95.5 Presence of coronary angioplasty implant and graft; Z79.82 Long term (current) use of aspirin; Z88.2 Allergy status to sulfonamides; Z90.49 Acquired absence of other specified parts of digestive tract; Z95.810 Presence of automatic (implantable) cardiac defibrillator
CPT/HCPCS: 74177; 80053; 81003; 83690; 85027; 99281; 99285; J2270; J2405; J3010; J7030

== ENCOUNTER 2018-02-12 16:39 | Emergency (ER) | payer OTHER ==
[~2018-02-12] VITALS: Ht 162.6 cm; Wt 86.1 kg
[~2018-02-12 16:39] MED LIST changes: +ZOFRAN ODT4 MG PO
[2018-02-12] MEDS ORDERED: MOTRIN800 MG PO (17:06)
[2018-02-12] MEDS ORDERED: KEFLEX500 MG PO (17:06)
[2018-02-12 17:12] VITALS: BP 181/86
== END 2018-02-12 17:25 | disposition home or self-care (01) ==
LOC: EME 16:39
DX: H60.12 Cellulitis of left external ear (principal); R59.0 Localized enlarged lymph nodes; Z88.2 Allergy status to sulfonamides
CPT/HCPCS: 99281; 99283

== ENCOUNTER 2018-04-14 09:49 | Emergency (ER) | payer OTHER ==
[~2018-04-14] VITALS: Ht 160 cm; Wt 86.2 kg
[~2018-04-14 09:49] MED LIST changes: +MOTRIN800 MG PO
[2018-04-14 10:28] LABS: HEMATOCRIT 33.9 % (36.0-46.0); HEMOGLOBIN 11.5 G/DL (11.9-15.5); MCH 33.3 PG (29.0-34.0); MCHC 33.9 G/DL (30.0-36.0); MCV 98.3 FL (83-99); PLATELET COUNT 319 K/uL (156-360); RBC DIS.WIDTH-CV 14.5 % (11.8-14.6); RBC DIS.WIDTH-SD 51.5 % (39-53); RED BLOOD COUNT 3.45 M/uL (3.80-5.20); WHITE BLOOD COUNT 9.4 K/uL (4.1-10.2)
[2018-04-14 10:46] LABS: CHLORIDE 109 mEq/L (99-109); POTASSIUM 3.4 mEq/L (3.7-5.4); SODIUM 144 mEq/L (136-147)
[2018-04-14 10:47] LABS: GLUCOSE 123 mg/dL (70-99)
[2018-04-14 10:51] LABS: CREATININE 1.1 mg/dL (0.6-1.3); GFR ESTIMATE (CALCULATED) 54 mL/min/
[2018-04-14 10:52] LABS: UREA NITROGEN (BUN) 13 mg/dL (9-23)
[2018-04-14 10:56] LABS: TROP-I INTERPRETATION NEGATIVE; TROPONIN-I 0.03 ng/mL (0.0-0.30)
[2018-04-14] MEDS ORDERED: ZITHROMAX Z-PA250 MG PO (12:39)
[2018-04-14] MEDS ORDERED: ALBUTEROL2.5 MG/3 M IH (12:41)
[2018-04-14] MEDS ORDERED: PREDNISONE20 MG PO (12:41)
[2018-04-14] MEDS ORDERED: VENTOLIN HFA18 GM IH (12:41)
[2018-04-14 14:24] VITALS: BP 108/72
== END 2018-04-14 14:25 | disposition home or self-care (01) ==
LOC: EME 09:49
DX: J44.1 Chronic obstructive pulmonary disease with (acute) exacerbation (principal); J20.9 Acute bronchitis, unspecified; I10 Essential (primary) hypertension; E11.9 Type 2 diabetes mellitus without complications; E78.5 Hyperlipidemia, unspecified; F17.200 Nicotine dependence, unspecified, uncomplicated; K21.9 Gastro-esophageal reflux disease without esophagitis; I25.2 Old myocardial infarction; Z95.1 Presence of aortocoronary bypass graft; F41.9 Anxiety disorder, unspecified; Z86.73 Personal history of transient ischemic attack (TIA), and cerebral infarction without residual deficits; Z79.82 Long term (current) use of aspirin; Z88.2 Allergy status to sulfonamides
CPT/HCPCS: 71046; 80048; 81003; 84484; 85027; 93005; 99281; 99284; J7512